=== PATIENT | female | born 1980 | race Caucasian/White ===

== ENCOUNTER 2020-06-06 08:22 | Day surgery (SDC) | payer BC ==
[2020-06-04 15:53] VITALS: BMI 24.1
[2020-06-06] MEDS ORDERED: LIDOCAINE HCL/PF 2% SDV 5ML VIAL ONE ×2 (10:27→11:06)
[2020-06-06] MEDS ORDERED: MIDAZOLAM HCL 2 MG/2 ML SINGLE DOSE VIAL ONE (10:28)
[2020-06-06] MEDS ORDERED: PROPOFOL 20 ML ONE ×9 (10:28→11:39)
[2020-06-06] MEDS ORDERED: ceFAZolin SODIUM 1 GM VIAL ONE ×2 (10:35→11:06)
[2020-06-06] MEDS ORDERED: SCOPOLAMINE HYDROBROMIDE 1 PATCH PATCH.TD72 ONE (10:35)
[2020-06-06] MEDS ORDERED: BUPIVACAINE HCL/PF 0.25% (2.5MG/ML) 10 ML VIAL ONE (10:36)
[2020-06-06] MEDS ORDERED: BUPIVACAINE HCL/EPINEPHRINE/PF 30 ML VIAL IJ ONE (10:36)
[2020-06-06] MEDS ORDERED: GENTAMICIN SO4 80 MG/2 ML VIAL ONE (10:36)
[2020-06-06] MEDS ORDERED: BUPIVACAINE LIPOSOME/PF (EXPAREL) 266 MG/20 ML VIAL ONE (10:37)
[2020-06-06] MEDS ORDERED: EPHEDRINE SULFATE/0.9% NACL/PF 50 MG/10 ML SYRINGE NR ONE (11:05)
[2020-06-06] MEDS ORDERED: ONDANSETRON 4 MG/2 ML VIAL ONE (11:06)
[2020-06-06] MEDS ORDERED: LIDOCAINE HCL 2% JELLY (5 ML/TUBE) ONE (11:06)
[2020-06-06] MEDS ORDERED: KETOROLAC TROMETHAMINE 30 MG/1 ML VIAL ONE (11:06)
[2020-06-06] MEDS ORDERED: DEXAMETHASONE SOD PHOSPHATE 4 MG/1 ML VIAL ONE (11:06)
[2020-06-06] MEDS ORDERED: ONDANSETRON 4 MG/2 ML VIAL IVPUSH PRN (13:14)
[2020-06-06] MEDS ORDERED: oxyCODONE HCL 5 MG TABLET PO PRN (13:14)
[2020-06-06] MEDS ORDERED: PROMETHAZINE HCL 25 MG/1 ML VIAL IVPUSH PRN (13:14)
[2020-06-06 14:09] VITALS: TEMP 98
[2020-06-06] MEDS ORDERED: oxyCODONE HCL 5 MG TABLET ONE (14:28)
[2020-06-06 14:59] VITALS: BP 110/62; PULSE 80
== END 2020-06-06 14:59 | disposition home or self-care (01) ==
LOC: FASU 08:22
PROVIDERS: ATTEND Plastic Surgery
PROC: 0HRV0JZ Replacement of Bilateral Breast with Synthetic Substitute, Open Approach (ICD-10-PCS; 2020-06-06)
PROC: 0HPU0JZ Removal of Synthetic Substitute from Left Breast, Open Approach (ICD-10-PCS; 2020-06-06)
PROC: 0HRU0JZ Replacement of Left Breast with Synthetic Substitute, Open Approach (ICD-10-PCS; 2020-06-06)
PROC: 0HPU0JZ Removal of Synthetic Substitute from Left Breast, Open Approach (ICD-10-PCS; principal; 2020-06-06 11:15)
PROC: 0HPT0JZ Removal of Synthetic Substitute from Right Breast, Open Approach (ICD-10-PCS; 2020-06-06 11:15)
DX: M95.4 Acquired deformity of chest and rib (principal); Z85.3 Personal history of malignant neoplasm of breast; Z90.13 Acquired absence of bilateral breasts and nipples; T85.41XA Breakdown (mechanical) of breast prosthesis and implant, initial encounter; T85.44XA Capsular contracture of breast implant, initial encounter; Y82.8 Other medical devices associated with adverse incidents; Y92.9 Unspecified place or not applicable; Z08 Encounter for follow-up examination after completed treatment for malignant neoplasm
CPT/HCPCS: 88300-TC; 88304-TC; 94760

== ENCOUNTER 2020-11-13 09:45 | Day surgery (SDC) | payer BC ==
[2020-11-07 12:37] VITALS: BMI 25.0
[2020-11-13] MEDS ORDERED: ceFAZolin SODIUM 1 GM VIAL ONE ×2 (10:10→10:49)
[2020-11-13] MEDS ORDERED: VANCOMYCIN 1,000 MG VIAL (RESTRICTED TO ID ONLY) ONE (10:11)
[2020-11-13] MEDS ORDERED: GENTAMICIN SO4 80 MG/2 ML VIAL ONE (10:11)
[2020-11-13] MEDS ORDERED: BUPIVACAINE HCL/EPINEPHRINE/PF 30 ML VIAL IJ ONE (10:11)
[2020-11-13] MEDS ORDERED: BUPIVACAINE LIPOSOME/PF (EXPAREL) 266 MG/20 ML VIAL ONE (10:13)
[2020-11-13] MEDS ORDERED: LIDOCAINE HCL 1%, 10 MG/ML (20ML VIAL) ONE (10:17)
[2020-11-13] MEDS ORDERED: EPINEPHrine/PF 1 MG/1 ML (1:1,000) AMPULE ONE ×2 (10:17→11:02)
[2020-11-13] MEDS ORDERED: MIDAZOLAM HCL 2 MG/2 ML SINGLE DOSE VIAL ONE (10:34)
[2020-11-13] MEDS ORDERED: EPHEDRINE SULFATE/0.9% NACL/PF 50 MG/10 ML SYRINGE NR ONE (10:57)
[2020-11-13] MEDS ORDERED: SCOPOLAMINE HYDROBROMIDE 1 PATCH PATCH.TD72 ONE (10:59)
[2020-11-13] MEDS ORDERED: ONDANSETRON 4 MG/2 ML VIAL IVPUSH ONE (11:00)
[2020-11-13] MEDS ORDERED: ONDANSETRON 4 MG/2 ML VIAL ONE ×2 (11:09→12:25)
[2020-11-13] MEDS ORDERED: DEXAMETHASONE SOD PHOSPHATE 4 MG/1 ML VIAL ONE ×2 (11:09→12:25)
[2020-11-13] MEDS ORDERED: PROPOFOL 20 ML ONE ×3 (11:53)
[2020-11-13] MEDS ORDERED: BACITRACIN 15 GM TUBE TOPICAL OINTMENT ONE (12:21)
[2020-11-13] MEDS ORDERED: ACETAMINOPHEN 1000 MG/100 ML VIAL (NON FORMULARY) IVPB ONE (12:50)
[2020-11-13] MEDS ORDERED: oxyCODONE HCL 5 MG TABLET PO PRN (12:50)
[2020-11-13] MEDS ORDERED: ACETAMINOPHEN 500 MG TABLET (FP) PO ONE (12:51)
[2020-11-13] MEDS ORDERED: LACTATED RINGERS SOLUTION 1,000 ML IV SCH (13:00)
[2020-11-13 13:57] VITALS: TEMP 97.8
[2020-11-13] MEDS ORDERED: oxyCODONE HCL 5 MG TABLET ONE (15:19)
[2020-11-13 16:03] VITALS: BP 112/78; PULSE 88
== END 2020-11-13 16:00 | disposition home or self-care (01) ==
LOC: FASU 09:45
PROVIDERS: ATTEND Plastic Surgery
PROC: 0HRU0JZ Replacement of Left Breast with Synthetic Substitute, Open Approach (ICD-10-PCS; 2020-11-13)
PROC: 0HNT0ZZ Release Right Breast, Open Approach (ICD-10-PCS; 2020-11-13)
PROC: 0HWU0JZ Revision of Synthetic Substitute in Left Breast, Open Approach (ICD-10-PCS; principal; 2020-11-13 11:00)
PROC: 0HWT0JZ Revision of Synthetic Substitute in Right Breast, Open Approach (ICD-10-PCS; 2020-11-13 11:00)
PROC: 0HPU0JZ Removal of Synthetic Substitute from Left Breast, Open Approach (ICD-10-PCS; 2020-11-13 11:00)
DX: M95.4 Acquired deformity of chest and rib (principal); Z90.13 Acquired absence of bilateral breasts and nipples; N65.1 Disproportion of reconstructed breast; T85.42XA Displacement of breast prosthesis and implant, initial encounter; T85.44XA Capsular contracture of breast implant, initial encounter; Y82.8 Other medical devices associated with adverse incidents; Y92.9 Unspecified place or not applicable
CPT/HCPCS: 19342; 19370; 19380; L8600; 88300-TC; 88304-TC; 94760; J0131